=== PATIENT | female | born 2000 | race Caucasian/White ===

== ENCOUNTER 2020-07-02 19:40 | Observation (INO) | payer MEDICAID ==
[~2020-07-02] VITALS: Ht 154.9 cm; Wt 99.8 kg
== END 2020-07-02 21:40 | disposition home or self-care (01) ==
LOC: 8 EST LDRP 19:40
PROVIDERS: ADMIT Obstetrics & Gynecology; ATTEND Obstetrics & Gynecology
DX: O62.9 Abnormality of forces of labor, unspecified (principal); Z3A.36 36 weeks gestation of pregnancy
CPT/HCPCS: 59025; G0378; 99281

== ENCOUNTER 2020-07-31 16:35 | Inpatient (IN) | payer MEDICAID ==
[~2020-07-31] VITALS: Ht 154.9 cm; Wt 105.7 kg
[2020-07-31] MEDS ORDERED: MISOPROSTOL 100MCG TABLET VG SCH (17:15)
[2020-07-31] MEDS ORDERED: CARBOPROST TROMETHAMINE 250 MCG/ML AMPUL IM PRN (17:15)
[2020-07-31] MEDS ORDERED: DEXT 5%/LR + PITOCIN 20UNITS/L 1,000 ML IV SCH ×2 (17:15→23:00)
[2020-07-31] MEDS ORDERED: METHYLERGONOVINE MALEATE 0.2 MG/ML IM PRN (17:15)
[2020-07-31] MEDS ORDERED: NALOXONE HCL 0.4 MG/ML 1ML VIAL IM PRN (17:15)
[2020-07-31] MEDS ORDERED: BUTORPHANOL TARTRATE 2 MG/ML VIAL IV PRN (17:15)
[2020-07-31] MEDS ORDERED: LIDOCAINE HCL 1% 20ML VIAL (Pyxis) INJ INFIL SCH (17:15)
[2020-07-31] MEDS ORDERED: MISOPROSTOL 100MCG TABLET VG PRN (18:00)
[2020-07-31 18:11] LABS: BASOPHILS % 0.4 % (0.0-2.0); EOSINOPHILS % 0.8 % (0.0-5.0); HEMATOCRIT. 30.8 % (36.0-48.0); HEMOGLOBIN. 10.1 g/dL (12.0-16.0); LYMPHOCYTES % 22.1 % (20.0-50.0); MEAN CORPUSCULAR HEMOGLOBIN 28.8 pg (28.0-32.0); MEAN CORPUSCULAR VOLUME 87.6 fL (81.0-99.0); MEAN PLATELET VOLUME 10.5 fl (7.4-10.4); MONOCYTES % 5.8 % (2.0-8.0); NEUTROPHILS % 70.9 % (40.0-76.0); PLATELET 280 x1000/uL (130-400); RED BLOOD CELL COUNT 3.51 mill/uL (4.2-5.4); RED CELL DISTRIBUTION WIDTH 15.4 % (11.6-14.6)
[2020-07-31 18:17] LABS: CLARITY URINE CLOUDY (CLEAR); COLOR URINE YELLOW (YELLOW); KETONES URINE NEGATIVE (NEGATIVE); LEUKOCYTE ESTERASE URINE 1+ (NEGATIVE); NITRITE URINE NEGATIVE (NEGATIVE); OCCULT BLOOD URINE NEGATIVE (NEGATIVE); PROTEIN URINE 3+ (NEGATIVE); SPECIFIC GRAVITY URINE 1.017 (1.005-1.030); UROBILINOGEN URINE 0.2 E.U./dL (0.2-1.0)
[2020-07-31 18:29] LABS: *BARBITURATES SCREEN URINE NEGATIVE (NEGATIVE); *BENZODIAZEPINES SCREEN URINE NEGATIVE (NEGATIVE); *COCAINE SCREEN URINE NEGATIVE (NEGATIVE)
[2020-07-31] MEDS: LACTATED RINGERS 1,000 ML IV SCH (18:29)
[2020-07-31 18:30] LABS: *AMPHETAMINES SCREEN URINE NEGATIVE (NEGATIVE); CANNABINOID URINE SCREEN NEGATIVE (NEGATIVE); METHADONE URINE SCREEN NEGATIVE (NEGATIVE); OPIATES URINE SCREEN NEGATIVE (NEGATIVE); PHENCYCLIDINE URINE SCREEN NEGATIVE (NEGATIVE)
[2020-07-31 18:50] LABS: INR 0.9; PARTIAL THROMBOPLASTIN TIME 31.3 sec (23.4-31.0); PROTHROMBIN TIME 9.7 sec (9.6-11.0)
[2020-07-31 18:54] LABS: HEPATITIS B SURFACE ANTIGEN NEGATIVE
[2020-08-01] MEDS: LACTATED RINGERS 1,000 ML IV SCH ×2 (01:22→03:30)
[2020-08-01] MEDS ORDERED: ROPIVACAINE HCL/PF EPIDURAL 200 ML EP SCH (01:45)
[2020-08-01] MEDS ORDERED: ROPIVACAINE HCL/PF EPIDURAL 200 ML EPI PRN (01:45)
[2020-08-01] MEDS ORDERED: ACETAMINOPHEN WITH CODEINE 300/30MG TABLET PO PRN (04:15)
[2020-08-01] MEDS ORDERED: IBUPROFEN 400MG TABLET PO PRN (04:15)
[2020-08-01] MEDS ORDERED: HEMORRHOIDAL SUPP PR PRN (04:15)
[2020-08-01] MEDS ORDERED: BISACODYL 10MG SUPP PR PRN (04:15)
[2020-08-01] MEDS ORDERED: BENZOCAINE/LANOLIN/ALOE VERA SPRAY TOP PRN (04:15)
[2020-08-01] MEDS ORDERED: DEXT 5%/LR + PITOCIN 20UNITS/L 1,000 ML IV SCH (04:15)
[2020-08-01 05:40] VITALS: BP 133/85
[2020-08-01 06:10] VITALS: BP 128/76
[2020-08-01 08:00] VITALS: BP 140/74
[2020-08-01] MEDS: MAGNESIUM/ALUMINUM HYDROXIDE/SIMETHICONE 30ML UDC PO SCH ×3 (08:28→20:53)
[2020-08-01] MEDS: SIMETHICONE 80MG TABLET CHEW PO SCH ×3 (08:28→20:54)
[2020-08-01] MEDS: IBUPROFEN 800MG TABLET PO PRN ×2 (08:29→17:54)
[2020-08-01] MEDS ORDERED: PRENATAL VIT/FE FUMARATE/FA TABLET PO SCH (09:00)
[2020-08-01 13:00] VITALS: BP 140/81
[2020-08-01 17:00] VITALS: BP 134/74
[2020-08-01 19:15] VITALS: BP 134/75
[2020-08-01] MEDS ORDERED: DOCUSATE SODIUM 100MG CAPSULE PO SCH (21:00)
[2020-08-02 03:00] VITALS: BP 137/67
[2020-08-02 06:35] LABS: BASOPHILS % 0.4 % (0.0-2.0); EOSINOPHILS % 1.4 % (0.0-5.0); HEMATOCRIT. 29.1 % (36.0-48.0); HEMOGLOBIN. 9.8 g/dL (12.0-16.0); LYMPHOCYTES % 24.4 % (20.0-50.0); MEAN CORPUSCULAR HEMOGLOBIN 29.5 pg (28.0-32.0); MEAN CORPUSCULAR VOLUME 88.2 fL (81.0-99.0); MEAN PLATELET VOLUME 9.7 fl (7.4-10.4); MONOCYTES % 4.8 % (2.0-8.0); PLATELET 229 x1000/uL (130-400)
[2020-08-02] MEDS ORDERED: FERROUS SULFATE 325MG TABLET PO SCH (07:30)
[2020-08-02 08:00] VITALS: BP 107/60
== END 2020-08-02 13:15 | disposition home or self-care (01) | DRG 560 ==
LOC: OBSVTOIN 16:35 → 8 EST LDRP 16:35 → 8EST 08-01 05:21
PROVIDERS: ADMIT Obstetrics & Gynecology; ATTEND Obstetrics & Gynecology
PROC: 10E0XZZ Delivery of Products of Conception, External Approach (ICD-10-PCS; principal; 2020-08-01)
PROC: 3E0R3BZ Introduction of Anesthetic Agent into Spinal Canal, Percutaneous Approach (ICD-10-PCS; 2020-08-01)
PROC: 00HU33Z Insertion of Infusion Device into Spinal Canal, Percutaneous Approach (ICD-10-PCS; 2020-08-01)
DX: O80 Encounter for full-term uncomplicated delivery (principal); Z3A.40 40 weeks gestation of pregnancy; Z37.0 Single live birth
CPT/HCPCS: 36415; 80305; 81003; 85025; 86592; 86703; 86762; 86850; 86900; 87340; 99281; G0378; J0595; J2310; J2590; J2795; J7120; A4315